=== PATIENT | female | born 1965 | race Caucasian/White ===

== ENCOUNTER → 2019-04-15 | Outpatient (CLI) | payer SELFPAY ==
[~2019-04-15] MED LIST: ALBU90OI INH; CEPH500 PO; Cleocin HCl300 MG PO; IBUP800 PO; METF500; OXYACE5T PO; Robaxin500 MG PO; SPACE CHAMBER1 EACH MC; Zithromax250 MG PO
== END | disposition home or self-care (01) ==
LOC: LAB SHORT 11:48 → LAB 11:48
DX: N39.0 Urinary tract infection, site not specified (principal)
CPT/HCPCS: 87077; 87086; 87186

== ENCOUNTER → 2019-12-27 | Outpatient (CLI) | payer OTHER | END | disposition home or self-care (01) | LOC: LAB SHORT 13:47 → OLS 13:47 → LAB 13:47 → LAB SHORT 12-28 13:47 | DX: R30.9 Painful micturition, unspecified (principal) | CPT/HCPCS: 87086 ==